=== PATIENT | male | born 1980 | race Caucasian/White ===

== ENCOUNTER 2017-07-15 17:25 | Emergency (ER) | payer OTHER ==
[~2017-07-15] VITALS: Ht 182.9 cm; Wt 68.0 kg
[~2017-07-15 17:25] MED LIST: ACEASPCAF; HYDACE5 PO; HYDGUAL120 PO; IBUP200; IBUP200 PO; IBUP800 PO; Naprosyn500 MG PO; PENVK250 PO; PENVK500 PO; PROM25 PO; Tylenol With C1 EACH PO; Ultram50 MG PO; Veetids 500500 MG PO
[2017-07-15] MEDS ORDERED: NAPR550 PO (18:11)
[2017-07-15] MEDS ORDERED: PERIDEX15 ML MM (18:11)
[2017-07-15] MEDS ORDERED: ONDA4ODT MM (18:11)
[2017-07-15] MEDS ORDERED: Amoxicillin500 MG PO (18:11)
== END 2017-07-15 18:13 | disposition home or self-care (01) ==
LOC: ER 17:25
DX: K02.9 Dental caries, unspecified (principal); Z79.899 Other long term (current) drug therapy; Z79.2 Long term (current) use of antibiotics; F17.200 Nicotine dependence, unspecified, uncomplicated
CPT/HCPCS: 99282